=== PATIENT | female | born 1965 | race Two or more races ===

== ENCOUNTER 2024-02-10 16:40 | Emergency (ER) | payer OTHER ==
[~2024-02-10] VITALS: Ht 160 cm; Wt 85.0 kg
[2024-02-10] MEDS ORDERED: LISI-892 PO (16:54)
[2024-02-10] MEDS ORDERED: METF-1211 PO (16:54)
[2024-02-10] MEDS ORDERED: INSU100I26 SQ (16:54)
[2024-02-10] MEDS ORDERED: METO25 PO (16:54)
[2024-02-10] MEDS ORDERED: INSU100V36 SQ (16:54)
[2024-02-10] MEDS ORDERED: ASPI-1450 PO (16:54)
[2024-02-10] MEDS ORDERED: MELO-107 PO (16:54)
[2024-02-10 18:02] LABS: BASOPHILS % (AUTO) 0.2 % (0.0-2.0); EOSINOPHILS % (AUTO) 1.9 % (1.0-6.0); HEMOGLOBIN 11.8 g/dL (12.0-16.0); LYMPHOCYTES % (AUTO) 29.6 % (22.0-44.0); MEAN CORPUSCULAR HEMOGLOBIN 31.7 pg (26.0-34.0); MEAN CORPUSCULAR HGB CONC 33.7 G/dL (31.0-37.0); MEAN CORPUSCULAR VOLUME 94 fL (80-100); MONOCYTES # (AUTO) 0.5 K/uL (0.1-1.0); NEUTROPHILS % (AUTO) 60.3 % (40.0-70.0); PLATELET COUNT (AUTO) 228 K/uL (150-450); RED BLOOD CELL COUNT(AUTO) 3.73 MIL/uL (4.00-5.20); RED CELL DISTRIBUTION WIDTH 13.6 % (11.5-14.5); WHITE BLOOD COUNT (AUTO) 6.7 K/uL (4.5-11.0)
[2024-02-10 18:10] LABS: ANION GAP 9 mmol/L (8-16); CALCIUM, TOTAL 9.1 mg/dL (8.8-10.5); CARBON DIOXIDE 27 mmol/L (22-29); CHLORIDE 100 mmol/L (98-107); CREATININE 0.66 mg/dL (0.60-1.30); GLOMERULAR FILTR. RATE CALC > 60 mL/min (>60); GLUCOSE,RANDOM 131 mg/dL (70-110); POTASSIUM 4.1 mmol/L (3.5-5.1); SODIUM SERUM 136 mmol/L (136-145); UREA NITROGEN, BLOOD 15 mg/dL (7-18)
[2024-02-10 18:20] LABS: TROPONIN I-HIGH SENSITIVITY Less Than 4 ng/L (<51)
[2024-02-10] MEDS ORDERED: OMEP20CA12 PO (19:19)
[2024-02-10] MEDS ORDERED: METO-408 PO (19:19)
[2024-02-10] MEDS ORDERED: IPRA15SP4 NASAL (19:19)
[2024-02-10] MEDS ORDERED: SEMA0.258 SQ (19:19)
[2024-02-10] MEDS ORDERED: LISI10TA24 PO (19:19)
[2024-02-10] MEDS ORDERED: ASPI-1444 PO (19:19)
[2024-02-10] MEDS ORDERED: ATOR40TA71 PO (19:19)
[2024-02-10] MEDS: ACETAMINOPHEN 500 MG TABLET PO ONE (19:22)
[2024-02-10 19:29] VITALS: BP 148/91; PULSE 71; RESP 16; TEMP 98.1
== END 2024-02-10 19:49 | disposition home or self-care (01) ==
LOC: EMS 17:08
DX: I10 Essential (primary) hypertension (principal); R42 Dizziness and giddiness; E11.9 Type 2 diabetes mellitus without complications; Z90.49 Acquired absence of other specified parts of digestive tract; Z98.890 Other specified postprocedural states
CPT/HCPCS: 71045; 80048; 84484; 85025; 93005; 99285; 36415-L1; 36415-TC

== ENCOUNTER 2024-08-26 19:07 | Emergency (ER) | payer OTHER ==
[~2024-08-26] VITALS: Ht 152.4 cm; Wt 95.0 kg
[~2024-08-26 19:07] MED LIST: ASPI-1444 PO; ATOR40TA71 PO; INSU100I26 SQ; INSU100V36 SQ; IPRA15SP4 NASAL; LISI10TA24 PO; MELO-107 PO; METF-1211 PO; METO-408 PO; OMEP20CA12 PO; SEMA0.258 SQ
[2024-08-26 19:16] VITALS: BP 106/69; PULSE 88; RESP 18; TEMP 98.1; O2SAT 98
[2024-08-26 19:29] LABS: COVID AG,FIA SOURCE NASAL SWAB
[2024-08-26 19:36] LABS: INFLUENZA TYPE A NEGATIVE FOR TYPE A (NEGATIVE); INFLUENZA TYPE B NEGATIVE FOR TYPE B (NEGATIVE)
[2024-08-26 19:38] LABS: SARS-COV2 (COVID) ANTIGEN,FIA Negative (Negative)
== END 2024-08-26 19:49 | disposition left against medical advice (07) ==
LOC: EMS 19:07
DX: R51.9 Headache, unspecified (principal); R05.9 Cough, unspecified; R09.89 Other specified symptoms and signs involving the circulatory and respiratory systems; Z20.822 Contact with and (suspected) exposure to COVID-19; Z53.21 Procedure and treatment not carried out due to patient leaving prior to being seen by health care provider
CPT/HCPCS: 87804

== ENCOUNTER → 2024-11-20 | Outpatient (CLI) | payer OTHER ==
[2024-11-20 12:45] LABS: BASOPHILS % (AUTO) 0.2 % (0.0-2.0); EOSINOPHILS % (AUTO) 1.2 % (1.0-6.0); HEMATOCRIT 39.3 % (36-46); HEMOGLOBIN 13.2 g/dL (12.0-16.0); LYMPHOCYTES # (AUTO) 1.8 K/uL (1.0-4.8); LYMPHOCYTES % (AUTO) 30.6 % (22.0-44.0); MEAN CORPUSCULAR HEMOGLOBIN 31.8 pg (26.0-34.0); MEAN CORPUSCULAR HGB CONC 33.6 G/dL (31.0-37.0); MEAN CORPUSCULAR VOLUME 95 fL (80-100); MONOCYTES # (AUTO) 0.4 K/uL (0.1-1.0); MONOCYTES % (AUTO) 7.3 % (2.0-9.0); NEUTROPHILS # (AUTO) 3.6 K/uL (1.8-7.7); NEUTROPHILS % (AUTO) 60.7 % (40.0-70.0); PLATELET COUNT (AUTO) 225 K/uL (150-450); RED BLOOD CELL COUNT(AUTO) 4.15 MIL/uL (4.00-5.20); RED CELL DISTRIBUTION WIDTH 13.1 % (11.5-14.5); WHITE BLOOD COUNT (AUTO) 5.9 K/uL (4.5-11.0)
[2024-11-20 12:53] LABS: HEMOGLOBIN A1C 7.6 % (3.8-5.6)
[2024-11-20 13:02] LABS: ALANINE AMINOTRANSFERASE 29 U/L (12-78); ALBUMIN 3.7 g/dL (3.4-5.0); ALKALINE PHOSPHATASE 125 U/L (46-116); ANION GAP 8 mmol/L (8-16); ASPARTATE AMINOTRANSFERASE 15 U/L (15-37); BILIRUBIN,TOTAL 0.4 mg/dL (0.1-1.0); CALCIUM, TOTAL 9.2 mg/dL (8.8-10.5); CARBON DIOXIDE 28 mmol/L (22-29); CHLORIDE 100 mmol/L (98-107); CHOL/HDL RATIO 2.2 (3.9-5.7); CHOLESTEROL 169 mg/dL (131-200); CREATININE 0.63 mg/dL (0.60-1.30); GLOMERULAR FILTR. RATE CALC > 60 mL/min (>60); GLUCOSE,RANDOM 203 mg/dL (70-110); HDL CHOLESTEROL 77 mg/dL (40-60); LDL CHOL (CALC.) 71 mg/dL (0-130); POTASSIUM 4.5 mmol/L (3.5-5.1); SODIUM SERUM 136 mmol/L (136-145); THYROID STIMULATING HORMONE 2.15 uIU/mL (0.36-3.74); TOTAL PROTEIN, SERUM 7.3 g/dL (6.4-8.2); TRIGLYCERIDES 107 mg/dL (15-150); UREA NITROGEN, BLOOD 15 mg/dL (7-18)
[2024-11-20 13:25] LABS: FOLATE SERUM 23.1 ng/mL (5.4-)
== END | disposition home or self-care (01) ==
LOC: LABMN 12:01
PROVIDERS: ATTEND Legal Medicine
DX: I10 Essential (primary) hypertension (principal); E11.65 Type 2 diabetes mellitus with hyperglycemia; E78.5 Hyperlipidemia, unspecified
CPT/HCPCS: 80053; 80061; 82306; 82607; 82746; 83036; 84443; 85025